=== PATIENT | female | born 1960 | race Caucasian/White ===

== ENCOUNTER → 2020-08-06 13:52 | Outpatient (CLI) | payer OTHER, SELFPAY ==
--- NOTE | ~2020-08-06 | MM_ITS ---
EXAMINATION: MM screening [facility] BI w shayla HISTORY: Screening mammogram TECHNIQUE: Craniocaudal and mediolateral oblique 3-D tomosynthesis images were obtained and synthetic 2-D images were generated. CAD analysis was submitted and interpreted. COMPARISON: 03/06/2019, 02/12/2019, 08/15/2016 BREAST PARENCHYMAL COMPOSITION: There are scattered areas of fibroglandular density. FINDINGS: Scattered benign-appearing calcifications are present. There is no evidence of suspicious m ass, calcification, or architectural distortion to suggest malignancy in either breast. There has bee n no suspicious interval change. IMPRESSION: 1. No mammographic evidence of malignancy. 2. Recommend routine screening mammography in one year. BI-RADS Category 2: Benign finding(s). Reviewed, dictated and finalized at location A.
== END ==
PROVIDERS: Visit Provider Nurse Practitioner
DX: Z12.31 Encounter for screening mammogram for malignant neoplasm of breast (principal)
CPT/HCPCS: 77063; 77067

== ENCOUNTER 2021-09-27 02:02 | Day surgery (SDC) | payer OTHER, SELFPAY ==
[2021-09-27] VITALS (10 sets, daily range): BP systolic 142–187; BP diastolic 61–80; PULSE 64–92; RESP 10–24; TEMP 36.2–37; O2SAT 96–100; BMI 28.5
--- NOTE | 2021-09-27 08:55 | ECG_ITS ---
Measurements Intervals [place] Rate: 84 P: 12 OR: 167 QRS: -19 QRSD: 81 T: 9 QT: 396 QTc: 469 Interpretive Statements SINUS RHYTHM VOLTAGE CRITERIA FOR LVH BORDERLINE T WAVE ABNORMALITY- INFERIOR LEADS BORDERLINE ECG Electronically Signed On 09-27-2021 10:57:46 CDT by Sharif Kay D.O.
--- NOTE | 2021-09-27 08:55 | WPDANESEPPF ---
Anes - Initial Pre Proc Eval Procedure: Operation Date: 09/27/21 11:00 Proposed Procedures p Robotic Assisted Laparoscopic Cholecystectomy, Possible Open - Winston Lopez DO Date/Time: 09/27/21 08:55 Surgeon: Winston Lopez DO Pre Op Diagnosis: symptomatic cholelithiasis Patient Data Age: 60 Gender: F Height: Weight: Allergies Allergy/AdvReac Type Severity Reaction Status Date / Time erythromycin base Allergy Unknown Hallucinati Verified 09/27/21 09:14 ng Penicillins Allergy Unknown Hives Verified 09/27/21 09:14 Sulfa (Sulfonamide Allergy Unknown Other Verified 09/27/21 09:14 Antibiotics) Home Medications Medication Instructions Recorded Confirmed Type bupropion HCl 300 mg 24 hr tablet, 300 mg PO QAM 09/14/21 09/15/21 History extended release omeprazole 40 mg capsule,delayed 40 mg PO DAILY 09/14/21 09/15/21 History release sertraline 100 mg tablet 100 mg PO DAILY 09/14/21 09/15/21 History Patient hx anesthesia problems: none Family hx anesthesia problems: none Results Review: All pre-operative results and documents have been reviewed as part of the pre-operative evaluation. [facility] Past Medical History Medical History (Updated 09/27/21 @ 08:58 by Win Bach MD) Asthma Chronic GERD Depression History of trigger finger Trigger Finger Surgery in 2018 Overweight (BMI 25.0-29.9) Surgical History Surgical History H/O shoulder surgery 2018 History of total shoulder replacement 2021 Family History Family History Other Brain aneurysm Depression Diabetes mellitus Family history of atrial fibrillation Family history of migraine headaches Social History Social History Smoking status: Never smoker Alcohol intake: current Anes - Eval Final PreProcedure Day of Procedure 09/27/21 08:55 Patient weight: overweight Heart: regular rate and rhythm Lungs: clear to auscultation and normal air movement Airway: Mallampati scale class II Neurological: alert and oriented Last oral intake: >/= 8 hours ASA classification: II Emergent: no Anesthetic plan: proceed Anesthesia type and monitoring: general ETT Results Review: All pre-operative results and documents have been reviewed as part of the pre-operative evaluation. Informed Consent: The patient's anesthetic plan and its attendant risks and benefits were discussed with the patient/family/POA. Questions were solicited and answers provided to the satisfaction of the patient/family/POA.
[2021-09-27] MEDS: ACETAMINOPHEN 500 MG TABLET 1000 MG PO (09:30)
[2021-09-27] MEDS: LACTATED RINGERS 1,000 ML 30 ML IV CONT ×3 (09:35→13:54)
[2021-09-27] MEDS: KETOROLAC 15 MG/ML VIAL (*BKC) IV PUSH (09:45)
[2021-09-27 09:56] LABS: Alanine Aminotransferase 26 U/L (6-35); Albumin Level 4.2 g/dL (3.5-5.1); Alkaline Phosphatase 103 U/L (38-126); Amylase 61 U/L (30-110); Aspartate Amino Transferase 28 U/L (14-36); Bilirubin,Total 0.2 mg/dL (0.2-1.3); Lipase 94 U/L (23-300)
--- NOTE | 2021-09-27 10:15 | SUR.PREOP ---
1010 SANKET GREEN, INDOCYANINE GREEN DYE INJECTED
--- NOTE | 2021-09-27 10:24 | WPDHPUPDATE1 ---
History and Physical Update Update Date/Time: 09/27/21 10:24 History and Physical has been reviewed, including an updated exam of the patient. There are NO changes in the patient's condition. Plan changed to Robotic assisted laparoscopic cholecystectomy, possible open. Assessment and Plan otherwise unchanged. Risks, benefits, and alternatives have been discussed and questions answered. Patient agrees to proceed with procedure.
--- NOTE | 2021-09-27 12:17 | W.PM.PROC2 ---
Procedure Note - Detailed Date of Procedure 09/27/21 Pre-op Diagnosis symptomatic cholelithiasis Post-op Diagnosis Same Procedure Performed 1. Laparoscopic cholecystectomy with cholangiography, da Anson assisted 2. Interpretation of cholangiography Surgeon Winston Lopez, Anesthesia General and Local (0.5% bupivacaine) Indications This is a 60-year-old woman who presented with right upper quadrant pain for the past month. She had not identified any particular foods that were causing her pain other than salads. She was having intermittent pain with bloating and vomiting. She had a gallbladder ultrasound performed at [facility] which showed evidence of cholelithiasis without evidence of cholecystitis. Discussions were made with the patient about treatment options and decision was made to proceed with robotic assisted laparoscopic cholecystectomy, possible open. Findings Laparoscopic cholecystectomy with cholangiography was performed. The patient received 1.5 mL of indocyanine green intravenously in preop about 1 hour before surgery start time. After careful dissection around the neck of the gallbladder, firefly mode on the camera was utilized to visualize the biliary ducts. I was able to easily identify the cystic duct which did not appear to have any occlusion and indocyanine green was visualized within the gallbladder. No other structures appear to be going up along with the cystic duct. This allowed me to adequately visualize a safe window for placing clips across the cystic duct. The gallbladder did not have any significant adhesions. It was somewhat dilated, but did not appear to have any signs of acute inflammation. The gallbladder was removed and sent to the lab for pathology. Description of Procedure Procedure as well as risks, benefits, and alternatives were discussed with the patient. Written consent was obtained and placed in chart prior to procedure. 1.5 mL of indocyanine green was given intravenously in preop. Patient was brought back to surgical suite. She was placed supine on operating table. Time-out was done to confirm patient and procedure. She was then intubated by the anesthesia department. Her abdomen was then prepped and draped in sterile fashion using chlorhexidine prep. 0.5% bupivacaine was infiltrated locally at the site of each port placement. An 8 mm incision was made just superior to the umbilicus and a 5 mm Optiview trocar was then advanced through the abdominal layers under direct visualization. Once inside the abdominal cavity, carbon dioxide insufflation was used to create a pneumoperitoneum. The camera was inserted and the abdomen was inspected. No mediated abnormalities were noted. The patient was placed in 10? reverse Trendelenburg position and rotated 10? to the left. Two 8 mm incisions were made in the right lateral abdomen and 2 8 mm trocars were inserted under direct visualization. A 12 mm incision was made in the left lateral abdomen and a 12 mm trocar was inserted under direct visualization. The 5 mm Optiview trocar was then removed and another 8 mm trocar was inserted in its place. The robotic arms were then brought up to the patient's bedside and secured to each port. The camera and instruments were inserted. I then moved over to the robotic consult to take control of the camera and instruments. The gallbladder was grasped at the fundus and retracted cephalad. The infundibulum of the gallbladder was then grasped and retracted laterally. Hook electrocautery was then used to carefully dissect around the neck of the gallbladder. The cystic duct was identified and a window was created around it using hook electrocautery. The cystic artery was also identified and a window was created behind it using hook electrocautery. Critical view of safety was identified visualizing the cystic duct running directly into the neck of the gallbladder and the cystic artery running directly int
[2021-09-27] MEDS: ONDANSETRON INJ 4 MG/2 ML VIAL IV PUSH (12:48)
[2021-09-27] MEDS: HALOPERIDOL LACTATE 5 MG/ML VIAL IV PUSH (13:22)
[2021-09-27] MEDS: SCOPOLAMINE 1.5 MG PATCH TRANSDERM (13:22)
[2021-09-27] MEDS: oxyCODONE HCL (*CRX) 5 MG TAB IR PO (14:27)
== END 2021-09-27 15:06 | disposition home or self-care (01) ==
PROVIDERS: PCP Family Medicine Sports Medicine; Visit Provider Surgery
PROC: 0FT44ZZ Resection of Gallbladder, Percutaneous Endoscopic Approach (ICD-10-PCS; CPT 47562; principal; 2021-09-27 11:00)
DX: K80.10 Calculus of gallbladder with chronic cholecystitis without obstruction (principal); K21.9 Gastro-esophageal reflux disease without esophagitis; F32.A Depression, unspecified
CPT/HCPCS: 47562; 36415; 80076; 82150; 83690; 86850; 86900; 86901; 88304; 93005; A9270; J0330; J0690; J1100; J1200; J1630; J1885; J2250; J2405; J2704; J2710; J3010; J7120

== ENCOUNTER 2021-09-27 07:27 | Outpatient (CLI) | payer OTHER, SELFPAY ==
[2021-09-27 08:43] LABS: SARS-CoV-2 RNA PCR Negative
== END 2021-09-27 07:28 | disposition home or self-care (01) ==
LOC: ANHSURGERY 07:29
PROVIDERS: PCP Family Medicine Sports Medicine; Visit Provider Surgery
DX: R68.89 Other general symptoms and signs (principal); Z20.822 Contact with and (suspected) exposure to COVID-19
CPT/HCPCS: C9803; U0003; U0005

== ENCOUNTER → 2022-05-11 12:08 | Outpatient (CLI) | payer OTHER, SELFPAY ==
--- NOTE | ~2022-05-11 | US_ITS ---
US thyroid INDICATION: Follow-up thyroid mass. Previous fine-needle aspiration biopsy and 2017 was benign. TECHNIQUE: Real-time sonographic images of the thyroid gland were obtained. COMPARISON: Ultrasound dated 08/15/2016 FINDINGS: The right thyroid lobe measures 4.3 x 1.7 x 1.7 cm. The left thyroid lobe measures 4.5 x 1 x 1.1 cm. There is normal echotexture and echogenicity throughout the thyroid gland. In the right lo be there is a heterogeneous 1.9 x 1.4 x 1.4 cm vascular mass which is slightly hyperechoic, wider lauro n tall, solid with ill-defined margins and no internal punctate echogenic foci. This mass is not sign ificantly changed from prior study allowing for differences of technique. Normal vascular flow is pre sent. IMPRESSION: 1. Stable right thyroid mass measuring 1.8 cm maximum dimension. Previous fine-needle aspiration bio psy was benign. Reviewed, dictated and finalized at location A. MOLDER HAND IMPRESSION: 1. Stable right thyroid mass measuring 1.8 cm maximum dimension. Previous fine -needle aspiration biopsy was benign.
== END ==
PROVIDERS: PCP Family Medicine Sports Medicine; Visit Provider Nurse Practitioner
DX: E04.1 Nontoxic single thyroid nodule (principal)
CPT/HCPCS: 76536

== ENCOUNTER → 2022-07-21 10:06 | Outpatient (CLI) | payer OTHER, SELFPAY ==
--- NOTE | ~2022-07-21 | MM_ITS ---
EXAMINATION: MM screening [facility] BI w shayla HISTORY: Screening mammogram TECHNIQUE: Craniocaudal and mediolateral oblique 3-D tomosynthesis images were obtained and synthetic 2-D images were generated. CAD analysis was submitted and interpreted. COMPARISON: 08/06/2020 bilateral screening mammogram 03/06/2019 bilateral diagnostic mammogram 02/12/2019 bilateral screening mammogram BREAST PARENCHYMAL COMPOSITION: FINDINGS: Increased number of microcalcifications in the subareolar area of the left breast. Diagnost ic left mammogram with magnification views is recommended. Otherwise there is no evidence of suspicious mass, calcification, or architectural distortion to sugg est malignancy in either breast. There has been no other suspicious interval change. IMPRESSION: 1. Increased microcalcifications in the subareolar area 2. Diagnostic left mammogram with magnification views is recommended BI-RADS Category 0: Incomplete: Needs additional imaging evaluation. Reviewed, dictated and finalized at location A.
--- NOTE | ~2022-07-21 | DEXA_ITS ---
Bone Density Report Name: VALENTINA SCHMIDT Age: 61 Sex: Female Ethnicity: White Date of : 1960 Indication: osteopenia; prior fracture; postmenopausal Referring Provider: JOSEPH, DRAGAN Study: Bone densitometry was performed. Exam Date: July 21, 2022 Accession number: [id number] Bone Density: Region BMD T-score Z-score Classification AP Spine (L2, L3, L4) 0.942 -1.2 0.3 Osteopenia Femoral Neck (Left) 0.667 -1.6 -0.3 Osteopenia Total Hip (Left) 0.759 -1.5 -0.5 Osteopenia Femoral Neck (Right) 0.699 -1.4 0.0 Osteopenia Total Hip (Right) 0.758 -1.5 -0.5 Osteopenia Total Hip Mean 0.759 -1.5 -0.5 Osteopenia World Health Organization criteria for BMD impression classify patients as: Normal (T-score at or above -1.0), Osteopenia (T-score between -1.0 and -2.5), or Osteoporosis (T-score at or below -2.5). 10-year Fracture Risk(1): Major Osteoporotic Fracture 14% Hip Fracture 1.4% Reported Risk Factors: [place] (), Neck BMD=0.667, BMI=27.5, previous fracture (1) FRAX(R) Version 3.08. Fracture probability calculated for an untreated patient. Fracture probability may be lower if the patient has received treatment. Previous Exams: Region Exam Age BMD T-score BMD Change BMD Change Date g/cm2 vs Baseline vs Previous AP Spine(L2, L3, L4) 07/21/2022 61 0.942 -1.2 -0.029* -0.007 02/12/2019 58 0.949 -1.2 -0.022 0.026* 08/09/2015 54 0.923 -1.4 -0.048* -0.048* 05/31/2013 52 0.971 -1.0 Total Hip(Left) 07/21/2022 61 0.759 -1.5 -0.085* -0.037* 02/12/2019 58 0.796 -1.2 -0.048* -0.042* 08/09/2015 54 0.838 -0.9 -0.006 -0.006 05/31/2013 52 0.844 -0.8 Total Hip(Right) 07/21/2022 61 0.758 -1.5 -0.038* 0.008 02/12/2019 58 0.749 -1.6 -0.047* -0.068* 08/09/2015 54 0.817 -1.0 0.021 0.021 05/31/2013 52 0.796 -1.2 *Denotes significance at 95% confidence level, LSC for AP Spine = 0.022 g/cm2, LSC for Total Hip = 0.027 g/cm2 Clinical Information Provided by Patient: Has had a low trauma fracture Has used the following medications: Vitamin D, Calcium Patient maximum height was 65.0 Menopause Age: 48 No regular weight bearing exercise Does not regularly consume dairy products Drinks caffeinated beverages Onset of menses at age 16 Number of children 0
== END ==
PROVIDERS: PCP Nurse Practitioner; Visit Provider Nurse Practitioner
DX: Z12.31 Encounter for screening mammogram for malignant neoplasm of breast (principal); M85.88 Other specified disorders of bone density and structure, other site; R92.8 Other abnormal and inconclusive findings on diagnostic imaging of breast; M85.852 Other specified disorders of bone density and structure, left thigh; M85.851 Other specified disorders of bone density and structure, right thigh
CPT/HCPCS: 77063; 77067; 77080

== ENCOUNTER → 2022-08-30 08:25 | Outpatient (CLI) | payer OTHER, SELFPAY ==
--- NOTE | ~2022-08-30 | MM_ITS ---
EXAMINATION: MM diagnostic mammo unilat LT HISTORY: Follow-up left breast calcifications TECHNIQUE: Additional 3-D tomosynthesis images of the left breast were performed and synthetic 2-D im ages were generated. CAD analysis was submitted and interpreted. COMPARISON: Comparison to multiple prior studies sequentially, with oldest reviewed study dated 08/15. BREAST PARENCHYMAL COMPOSITION: Breast composed of scattered areas of fibroglandular density FINDINGS: There are clustered calcifications in the subareolar location of the left breast which laye r on medial lateral view, consistent with benign milk of calcium. No suspicious masses, calcification s or architectural distortion to suggest malignancy. IMPRESSION: 1. No evidence for malignancy in the left breast. Benign findings. 2. Routine yearly screening mammogram and regular clinical breast examination are recommended. BI-RADS Category 2: Benign finding(s). Reviewed, dictated and finalized at location A. IMPRESSION: 1. No evidence for malignancy in the left breast. Benign findings. 2. Routine yearly screening mammogram and regular clinical breast examination a re recommended. BI-RADS Category 2: Benign finding(s).
== END ==
PROVIDERS: PCP Obstetrics & Gynecology Gynecology; Visit Provider Obstetrics & Gynecology Gynecology
DX: R92.8 Other abnormal and inconclusive findings on diagnostic imaging of breast (principal)
CPT/HCPCS: 77065

== ENCOUNTER 2023-10-05 10:09 | Outpatient (CLI) | payer OTHER, SELFPAY ==
--- NOTE | ~2023-10-05 | MM_ITS ---
EXAMINATION: MM screening [facility] BI w shayla HISTORY: Screening TECHNIQUE: Craniocaudal and mediolateral oblique 3-D tomosynthesis images were obtained and synthetic 2-D images were generated. CAD analysis was submitted and interpreted. COMPARISON: Comparison to multiple prior studies sequentially, with oldest reviewed study dated 01/25. BREAST PARENCHYMAL COMPOSITION: Not dense: There are scattered areas of fibroglandular density. FINDINGS: There is no evidence of suspicious mass, calcification, or architectural distortion to sugg est malignancy in either breast. There has been no suspicious interval change. IMPRESSION: 1. No mammographic evidence of malignancy. 2. Recommend routine screening mammography in one year. BI-RADS Category 1: Negative Reviewed, dictated and finalized at location B.
== END 2023-10-05 10:10 ==
LOC: MICIMG 10:10
PROVIDERS: PCP Nurse Practitioner; Visit Provider Nurse Practitioner
DX: Z12.31 Encounter for screening mammogram for malignant neoplasm of breast (principal)
CPT/HCPCS: 77063; 77067

== ENCOUNTER 2024-12-17 10:49 | Outpatient (CLI) | payer OTHER, SELFPAY ==
--- NOTE | ~2024-12-17 | MM_ITS ---
EXAMINATION: MM screening [facility] BI w shayla HISTORY: Screening TECHNIQUE: Craniocaudal and mediolateral oblique 3-D tomosynthesis images were obtained and synthetic 2-D images were generated. CAD analysis was submitted and interpreted. COMPARISON: 10/05/2023 and 07/21/2022 BREAST PARENCHYMAL COMPOSITION: The breasts are heterogeneously dense, which may obscure small masses. FINDINGS: There is no evidence of suspicious mass, calcification, or architectural distortion to suggest malignancy. There has been no suspicious interval change. IMPRESSION: 1. No mammographic evidence of malignancy. Recommend routine screening mammography in one year. BI-RADS Category 2: Benign finding(s) Reviewed, dictated and finalized at location Q. IMPRESSION: 1. No mammographic evidence of malignancy. Recommend routine screening mammogra phy in one year. BI-RADS Category 2: Benign finding(s)
--- NOTE | ~2024-12-17 | DEXA_ITS ---
Bone Density Report Name: VALENTINA SCHMIDT Age: 64 Sex: Female Ethnicity: White Date of : 1960 Indication: osteopenia; Referring Provider: JOSEPH, DRAGAN Study: Bone densitometry was performed. Exam Date: December 17, 2024 Accession number: [id number] Bone Density: Region BMD T-score Z-score Classification AP Spine(L1-L4) 0.954 -0.8 0.8 Normal Femoral Neck (Left) 0.624 -2.0 -0.6 Osteopenia Total Hip (Left) 0.730 -1.7 -0.6 Osteopenia Femoral Neck (Right) 0.678 -1.5 -0.1 Osteopenia Total Hip (Right) 0.737 -1.7 -0.6 Osteopenia Total Hip Mean 0.734 -1.7 -0.6 Osteopenia World Health Organization criteria for BMD impression classify patients as: Normal (T-score at or above -1.0), Osteopenia (T-score between -1.0 and -2.5), or Osteoporosis (T-score at or below -2.5). 10-year Fracture Risk(1): Major Osteoporotic Fracture 9.6% Hip Fracture 1.3% Reported Risk Factors: [place] (), Neck BMD=0.624, BMI=23.2 (1) FRAX(R) Version 3.08. Fracture probability calculated for an untreated patient. Fracture probability may be lower if the patient has received treatment. Previous Exams: -- Region Exam Age BMD T-score BMD Change BMD Change Date g/cm2 vs Baseline vs Previous -- AP Spine (L1-L4) 12/17/2024 64 0.954 -0.8 0.1% 3.7%* 08/09/2015 54 0.919 -1.2 -3.5%* -3.5%* 05/31/2013 52 0.953 -0.9 Total Hip(Left) 12/17/2024 64 0.730 -1.7 -13.5%* -3.8%* 07/21/2022 61 0.759 -1.5 -10.1%* -4.7%* 02/12/2019 58 0.796 -1.2 -5.7%* -5.0%* 08/09/2015 54 0.838 -0.9 -0.7% -0.7% 05/31/2013 52 0.844 -0.8 Total Hip(Right) 12/17/2024 64 0.737 -1.7 -7.3%* -2.7% 07/21/2022 61 0.758 -1.5 -4.8%* 1.1% 02/12/2019 58 0.749 -1.6 -5.8%* -8.3%* 08/09/2015 54 0.817 -1.0 2.6% 2.6% 05/31/2013 52 0.796 -1.2 -- *Denotes significance at 95% confidence level, LSC for AP Spine = 0.022 g/cm2, LSC for Total Hip = 0.027 g/cm2 Clinical Information Provided by Patient: Patient maximum height was 65 Menopause Age: 48 Does not regularly consume dairy products Drinks caffeinated beverages Onset of menses at age 13 Number of children 0 Impression: The patient has low bone mass, based on the Left Femoral Neck T-score. The patient has an estimated ten-year risk of hip fracture of 1.3% and an estimated ten-year risk of major fracture of 9.6%, based on the WHO FRAX algorithm. The BMD for the Total Hip(Left) decreased, changing by -3.8% since the last DXA exam. Discussion: BONE DENSITY IS LOW AT ONE OR MORE SKELETAL SITES. This patient's lowest T-score is low at one or more skeletal sites. It meets the World Health Organization's (WHO) criteria for ?low bone mass? (T-score between -1.0 and -2.5). The patient's 10-year risk of fracture as calculated by FRAX is less than the threshold where pharmacological therapy is recommended by the National Osteoporosis Foundation (NOF). However, all treatment decisions require clinical judgment and consideration of individual patient factors, including patient preferences, comorbidities, previous drug use, risk factors not captured in the FRAX model (e.g., frailty, falls, vitamin D deficiency, increased bone turnover, interval significant decline in bone density) and possible under or overestimation of fracture risk by FRAX. The patient should follow a healthful lifestyle (good nutrition with adequate calcium and vitamin D, and appropriate weight-bearing exercise). Follow-Up: Consider repeating this study in 2 years to reassess this patient's status, or sooner if there is some new clinical indication. Reported by: RUDY on 12/17/2024 11:28:00 AM. Reviewed, dictated and finalized at location A.
== END 2024-12-17 10:50 | disposition home or self-care (01) ==
PROVIDERS: PCP Nurse Practitioner; Visit Provider Nurse Practitioner
DX: Z12.31 Encounter for screening mammogram for malignant neoplasm of breast (principal); Z78.0 Asymptomatic menopausal state; M85.852 Other specified disorders of bone density and structure, left thigh; M85.851 Other specified disorders of bone density and structure, right thigh
CPT/HCPCS: 77063; 77067; 77080

== ENCOUNTER 2025-02-13 02:17 | Day surgery (SDC) | payer OTHER, SELFPAY ==
[2025-01-29 15:04] VITALS: BMI 22.4
--- OUTSIDE RECORDS SUMMARY | 2025-02-13 02:20 | XMS_ITS | Clinical Summary ---
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 Gender Identity Not on file Sexual Orientation Not on file Last Filed Vital Signs Vital Sign Reading Time Taken Comments Blood Pressure - - Pulse - - Temperature - - Respiratory Rate - - Oxygen Saturation - - Inhaled Oxygen Concentration - - Weight 77.1 kg (170 lb) 09/13/2017 4:26 PM CDT Height 165.1 cm (5' 5) 09/13/2017 4:26 PM CDT Body Mass Index 28.29 09/13/2017 4:26 PM CDT Plan of Treatment Health Maintenance Due Date Last Done Comments Cervical Cancer Screening Pa p Smear (Age 30 to 64) Every 3 Years 1960 Colorectal Cancer Screening Colonoscopy (10 Years) 1960 Annual Physical 1964 Hepatitis C 11/02/1979 DTaP, Tdap and Td Vaccines ( 1 - Tdap) 1980 Cervical Cancer Screening Pa p with HPV Testing (Age 30 to 64) Every 5 Years 11/02/1991 Cervical Cancer Screening with HPV 11/02/1991 Mammogram Screening 2001 Pneumococcal Vaccine: 50+ Ye ars (1 of 1 - PCV) 11/02/2011 Zoster Vaccines (1 of 2) 11/02/2011 COVID-19 Vaccine (2024-2 6 season) 2024 Influenza Adult (#1) 2024 RSV Immunization or 60+ Years (1 - 1-dose 75+ series) 2036 Hepatitis A Vaccines Aged Out No long er eligible based on patient's age to complete this topic Meningococcal B Vaccine Aged Out No l onger eligible based on patient's age to complete this topic Meningococcal Vaccine Aged Out No drew neeraj eligible based on patient's age to complete this topic RSV Immunizations Under 20 Months Aged Out No longer eligible based on patient's age to complete this topic
--- OUTSIDE RECORDS SUMMARY | 2025-02-13 02:20 | XMS_ITS | Clinical Summary ---
Author Organization [facility] Address [address] [place] [address] Phone Care Team Providers Care Associate Civil Engineer Name Role Phone Des Gutierrez MD Primary Care Provider [phone] Allergies Active Allergy Reactions Criticality Noted Date Comments Erythromycin Hives 08/01/2017 Penicillins Unknown 08/01/2017 Sulfasalazine Hives 08/01/2017 Medications fluticasone (FLONASE) 50 MCG/ACT Suspension 06/25/2017 Active omeprazole (PRILOSEC) 40 MG CAPSULE DELAYED RELEASE 06/09/2017 Active ondansetron (ZOFRAN) 8 MG Tablet 05/22/2017 Active sertraline (ZOLOFT) 100 MG Tablet 06/09/2017 Active HYDROcodone-acetam inophen (NORCO) 7.5-325 MG Tablet 08/09/2017 A ctive Social History Tobacco Use Types Packs/Day Years Used Date Smoking Tobacco: Never Smokeless Tobacco: Never Alcohol Use Standard Drinks/Week Comments Yes 0 (1 standard drink = 0.6 oz pur e alcohol) 3 drinks per week Comments No Sex and Gender Information Value Date Recorded Sex Assigned at Not on file Legal Sex Female 11:25 AM CDT Gender Identity Not on file Sexual Orientation Not on file Last Filed Vital Signs Vital Sign Reading Time Taken Comments Blood Pressure 120/78 08/13/2017 3:02 PM CDT Pulse 86 08/13/2017 3:02 PM CDT Temperature - - Respiratory Rate 18 08/13/2017 3:02 PM CDT Oxygen Saturation 99% 08/13/2017 3:02 PM CDT Inhaled Oxygen Concentration - - Weight 77.1 kg (170 lb) 08/13/2017 3:02 PM CDT Height 162.6 cm (5' 4) 08/13/2017 3:02 PM CDT Body Mass Index 29.18 08/13/2017 3:02 PM CDT Plan of Treatment Health Maintenance Due Date Last Done Comments Hepatitis C Virus (HCV) Screening 1960 TdaP Immunization 1960 Pap Smear 1982 Cervical Cancer Screening (CCS) 11/02/1991 HPV/Cotest 11/02/1991 Cologuard 2006 Colonoscopy 2006 Colorectal Cancer Screening 2006 Immunochemical Fecal Occult Blood 2006 Pneumococcal Immunization (5 0+ years) (1 of 1 - PCV) 11/02/2011 Zoster Immunization (1 of 2) 11/02/2011 Influenza Immunization (#1) 2024 SARS-COV-2 Immunization ( - season) 2024 04/05/2021, 06/25/2020, 06/01/2020 Respiratory Syncytial Virus (RSV) Immunization (Adult) (1 - 1-dose 75+ series) 2036 Hepatitis B Immunization Aged Out No longer eligible based on patient's age to complete this topic Human Papillomavirus (HPV) Immunization Aged Out No longer eligible b ased on patient's age to complete this topic Meningococcal Immunization (ACWY) Aged Out No longer eligible b ased on patient's age to complete this topic Rotavirus Immunization Aged Out No lo nger eligible based on patient's age to complete this topic Care Teams Associate Civil Engineer Relationship Specialty Start Date End Date Des Gutierrez MD [address] [address] PCP - General Family Medicine 08/01/17
--- OUTSIDE RECORDS SUMMARY | 2025-02-13 02:20 | XMS_ITS | Patient Health Record ---
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
--- OUTSIDE RECORDS SUMMARY | 2025-02-13 02:20 | XMS_ITS | Clinical Summary ---
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 Name Role Phone Des Gutierrez MD Unavailable Rehan Mendiola MD Primary Care Provider [phone] Allergies No known active allergies Medications fluticasone (FLONASE) 50 mcg/actuation nasal spray 06/25/2017 Active HYDROcodone-kunal taminophen (NORCO) 7.5-325 mg per tabletIndicatio ns:Pain TAKE 1 TO 2 TABLETS BY MOUTH EVERY 4 TO 6 HOURS NEEDED FOR PAIN 0 09/15/2017 Active omeprazole (PriLOSEC) 40 mg capsule 10/02/2017 Active ondansetron (ZOFRAN) 8 mg tablet 05/22/2017 Active predniSONE (DELTASONE) 10 mg tablet TAKE 4 TABLETS DAILY FOR 3 DAYS THEN 3 FOR 3 THEN 2 FOR 3 THEN 1 FOR 3 DAYS IN THE MORNING WITH FOOD OR MILK 0 07/05/2017 Active sertraline (ZOLOFT) 100 mg tablet 06/09/2017 Active buPROPion XL (WELLBUTRIN XL) 150 mg 24 hr tablet 02/11/2019 Active cyanocobalamin (vitamin B-12) 100 mcg tabletIndicatio ns:Prevention of Vitamin B12 Deficiency Take 100 mcg by mouth daily Active ergocalciferol, vitamin D2, (VITAMIN D2 ORAL) Take by mouth Active Active Problems Problem Noted Date Diagnosed Date Abnormal findings on diagnostic imaging of flaca t 04/11/2019 Sensorineural hearing loss, bilateral 10/10/2017 Sensorineural hearing loss ( SNHL) of left ear with unrestricted hearing of right ear 10/10/2017 Surgical History Surgery Date Site/Laterality Comments BIOPSY Thyroid SHOULDER SURGERY Medical History Medical History Date Comments Allergy status to unspecifie d drugs, medicaments and biological substances status History of seasonal allergie s - (Added by TW Conv) Allergic rhinitis Asthma Depression GERD (gastroesophageal reflux disease) Family History Medical History Relation Name Comments Aneurysm Father Relation Name Status Comments Father Social History Tobacco Use Types Packs/Day Years Used Date Smoking Tobacco: Never Comments No Sex and Gender Information Value Date Recorded Sex Assigned at Not on file Legal Sex Female 3:46 PM CDT Gender Identity Not on file Sexual Orientation Not on file Last Filed Vital Signs Vital Sign Reading Time Taken Comments Blood Pressure - - Pulse - - Temperature - - Respiratory Rate - - Oxygen Saturation - - Inhaled Oxygen Concentration - - Weight 77.1 kg (170 lb) 04/11/2019 8:29 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
[2025-02-13 06:25] VITALS: BP 132/71; PULSE 89; RESP 16; TEMP 36.9; O2SAT 100
[2025-02-13 06:26] VITALS: BMI 21.7
[2025-02-13] MEDS: LACTATED RINGERS 1,000 ML 150 ML IV CONT (06:35)
--- NOTE | 2025-02-13 07:32 | PM.IMHP ---
H&P: HPI History of Present Illness Date/Time: 02/13/25 07:32 Chief Complaint: Screening colonoscopy Narrative: This is the patient's first colonoscopy. There are no GI symptoms and there is no family history of colorectal cancer. Review of Systems Review of Systems: All systems reviewed & are unremarkable except as noted in HPI and below PMFSH Past Medical History Medical History Asthma Chronic GERD Depression History of trigger finger Trigger Finger Surgery in 2018 Overweight (BMI 25.0-29.9) Surgical History Surgical History H/O shoulder surgery 2018 History of total shoulder replacement 2021 Hx laparoscopic cholecystectomy Lap Crissy Poss Open on 09/27/21. Family History Family History Other Brain aneurysm Depression Diabetes mellitus Family history of atrial fibrillation Family history of migraine headaches Social History Social History Smoking status: Never smoker Alcohol intake: current Drinks per week: 12 Substance use type: does not use Living arrangements: with family Meds Home Medications and Allergies Home Medications ?Medication ?Instructions ?Recorded ?Confirmed ?Type bupropion HCl 300 mg 24 hr tablet, 300 mg PO QAM 09/14/21 02/13/25 History extended release omeprazole 40 mg capsule,delayed 40 mg PO BID 09/14/21 02/13/25 History release sertraline 100 mg tablet 100 mg PO DAILY 09/14/21 02/13/25 History cholecalciferol (vitamin D3) 50 50 mcg PO DAILY 09/27/21 02/13/25 History mcg (2,000 unit) capsule (Vitamin D3) glucosamine 250 [id number]-[id number] 200 1 tablet PO DAILY 09/27/21 02/13/25 History mg-D3 1,500 ojxc-G-lmywf-herbs tablet methylsulfonylmethane 1,000 mg 1,000 mg PO DAILY 09/27/21 02/13/25 History capsule (MSM) losartan 50 mg tablet 50 mg PO DAILY 01/29/25 02/13/25 History meloxicam 15 mg tablet 15 mg PO DAILY 01/29/25 02/13/25 History omega 3 350 mg-dha 235 mg-epa 90 1 cap PO DAILY 01/29/25 02/13/25 History mg-fish oil 597 mg capsule,delay rel ([place]-3) Allergies Allergy/AdvReac Type Severity Reaction Status Date / Time erythromycin base Allergy Unknown Hallucinati Verified 02/13/25 06:22 ng Penicillins Allergy Unknown Hives Verified 02/13/25 06:22 Sulfa (Sulfonamide Allergy Unknown Other Verified 02/13/25 06:22 Antibiotics) diphenhydramine (From AdvReac Intermediate Hallucinati Verified 02/13/25 06:22 Benadryl) ng Vital Signs Vital Signs - 24 hr 02/13/25 06:25 Temperature 98.4 F Pulse Rate 89 Respiratory Rate 16 Blood Pressure 132/71 Pulse Oximetry 100 Oxygen Delivery Room Air Exam Const: General: cooperative and healthy appearing Resp: Effort & Inspection: normal respiratory effort and able to speak in complete sentences Auscultation: clear to auscultation bilaterally Cardio: Rate: regular rate Rhythm: regular rhythm GI: Inspection: normal to inspection GI Palp: No No hepatosplenomegaly present Auscultation: normal bowel sounds Rectal Exam: deferred Skin: General skin exam: normal color Psych: Appearance: grossly normal Mental Status: mental status grossly normal Assessment and Plan Assessment and plan (1) Encounter for screening colonoscopy: Code(s): Z12.11 - Encounter for screening for malignant neoplasm of colon Status: Acute Assessment and Plan: The patient is deemed a good candidate for the procedure. Consent signed. Will proceed.
--- NOTE | 2025-02-13 07:48 | S_PTH ---
PATIENT: Alicia Barrera LOC: [facility] #:[id number] AGE/SX: 64/F ROOM: RE02/13/[address]: Brian Fregoso MD : 1960 BED: DIS: 02/13/2025 SPEC #: [id number] RECD: 02/13/25 10:02 STATUS: LANCE REQ #: [id number] PEPE: 02/13/25 07:[address]: Brian Fregoso DEPT: [facility] Surgical RECD BY: Annalise Jimenes ENTERED: 02/13/25 10:03 SP TYPE: Surgical OTHR DR: Gerard WiseMD Tissues: A - Colon Polypectomy Procedures: Hematoxylin and Eosin Stain Gross and Microscopic Level 4
[2025-02-13 07:50] VITALS: BP 136/66; PULSE 75; RESP 13; O2SAT 100
[2025-02-13 08:00] VITALS: BP 144/74; PULSE 68; RESP 18; O2SAT 100
[2025-02-13 08:10] VITALS: BP 157/80; PULSE 70; RESP 16; O2SAT 100
--- NOTE | 2025-02-17 15:44 | WPDANESEPPF ---
Anes - Initial Pre Proc Eval Procedure: Operation Date: 02/13/25 07:30 Proposed Procedures p Screening Colonoscopy - Brian Fregoso MD Date/Time: 02/17/25 15:44 Surgeon: Brian Fregoso MD Pre Op Diagnosis: Encounter for screening for malignant neoplasm of Patient Data Age: 64 Gender: F Height: 1.65 m Weight: 59.3 kg Last Vital Signs Temp 98.4 F 02/13/25 06:25 Pulse 70 02/13/25 08:10 Resp 16 02/13/25 08:10 BP 157/80 H 02/13/25 08:10 Pulse Ox 100 02/13/25 08:10 O2 Del Method Room Air 02/13/25 08:10 Allergies Allergy/AdvReac Type Severity Reaction Status Date / Time erythromycin base Allergy Unknown Hallucinati Verified 02/13/25 06:22 ng Penicillins Allergy Unknown Hives Verified 02/13/25 06:22 Sulfa (Sulfonamide Allergy Unknown Other Verified 02/13/25 06:22 Antibiotics) diphenhydramine (From AdvReac Intermediate Hallucinati Verified 02/13/25 06:22 Benadryl) ng Home Medications ?Medication ?Instructions ?Recorded ?Confirmed ?Type bupropion HCl 300 mg 24 hr tablet, 300 mg PO QAM 09/14/21 02/13/25 History extended release omeprazole 40 mg capsule,delayed 40 mg PO BID 09/14/21 02/13/25 History release sertraline 100 mg tablet 100 mg PO DAILY 09/14/21 02/13/25 History cholecalciferol (vitamin D3) 50 50 mcg PO DAILY 09/27/21 02/13/25 History mcg (2,000 unit) capsule (Vitamin D3) glucosamine 250 pj-norzj-jkt 200 1 tablet PO DAILY 09/27/21 02/13/25 History mg-D3 1,500 zfwx-O-djymp-herbs tablet methylsulfonylmethane 1,000 mg 1,000 mg PO DAILY 09/27/21 02/13/25 History capsule (MSM) losartan 50 mg tablet 50 mg PO DAILY 01/29/25 02/13/25 History meloxicam 15 mg tablet 15 mg PO DAILY 01/29/25 02/13/25 History omega 3 350 mg-dha 235 mg-epa 90 1 cap PO DAILY 01/29/25 02/13/25 History mg-fish oil 597 mg capsule,delay rel ([place]-3) Patient hx anesthesia problems: none Family hx anesthesia problems: none Results Review: All pre-operative results and documents have been reviewed as part of the pre-operative evaluation. [facility] Past Medical History Medical History Depression Chronic GERD Overweight (BMI 25.0-29.9) History of trigger finger Trigger Finger Surgery in 2018 Asthma Surgical History Surgical History Hx laparoscopic cholecystectomy Lap Crissy Poss Open on 09/27/21. H/O shoulder surgery 2018 History of total shoulder replacement 2021 Family History Family History Other Brain aneurysm Depression Diabetes mellitus Family history of atrial fibrillation Family history of migraine headaches Social History Social History Smoking status: Never smoker Alcohol intake: current Drinks per week: 12 Substance use: never Substance use type: does not use Living arrangements: with family Spiritual care concerns: No Anes - Eval Final PreProcedure Day of Procedure 02/17/25 15:44 Patient weight: normal Lungs: normal air movement Airway: Mallampati scale class II Neurological: alert and oriented Last oral intake: >/= 8 hours ASA classification: II Emergent: no Anesthetic plan: proceed Anesthesia type and monitoring: general GIVS and standard monitoring Results Review: All pre-operative results and documents have been reviewed as part of the pre-operative evaluation. Informed Consent: The patient's anesthetic plan and its attendant risks and benefits were discussed with the patient/family/POA. Questions were solicited and answers provided to the satisfaction of the patient/family/POA.
== END 2025-02-13 08:18 | disposition home or self-care (01) ==
PROVIDERS: PCP Family Medicine; Referring Provider Nurse Practitioner; Visit Provider Internal Medicine Gastroenterology
PROC: 0DJD8ZZ Inspection of Lower Intestinal Tract, Via Natural or Artificial Opening Endoscopic (ICD-10-PCS; CPT 45378; principal; 2025-02-13 07:30)
DX: Z12.11 Encounter for screening for malignant neoplasm of colon (principal); D12.4 Benign neoplasm of descending colon; J45.909 Unspecified asthma, uncomplicated; K21.9 Gastro-esophageal reflux disease without esophagitis; F32.A Depression, unspecified; Z98.890 Other specified postprocedural states; Z90.49 Acquired absence of other specified parts of digestive tract; Z82.49 Family history of ischemic heart disease and other diseases of the circulatory system
CPT/HCPCS: 45385; 88305; J2003; J2704; J7120